=== PATIENT | female | born 1960 | race Caucasian/White ===

== ENCOUNTER 2016-05-03 20:22 | Emergency (ER) | payer OTHER ==
[~2016-05-03] VITALS: Ht 165.1 cm; Wt 63.0 kg
[~2016-05-03 20:22] MED LIST: AUGM875T PO; LIPI10TA PO; LISI2.5T3 PO; METO25 PO
[2016-05-03 20:29] VITALS: BP 168/92; PULSE 86; RESP 16; TEMP 97.9; O2SAT 100
[2016-05-03 20:45] VITALS: BP 172/94; PULSE 89; RESP 16; TEMP 98; O2SAT 100
[2016-05-03] MEDS ORDERED: SIMV40TA PO (20:51)
[2016-05-03] MEDS ORDERED: METO25TA3 PO (20:51)
[2016-05-03] MEDS ORDERED: TRAM50TA PO (20:51)
[2016-05-03] MEDS ORDERED: ALPR.25 PO (20:51)
[2016-05-03] MEDS ORDERED: HUMI20KI SQ (20:51)
[2016-05-03] MEDS ORDERED: HYDR25TA5 PO (20:51)
--- NOTE | 2016-05-03 20:56 | PD ---
HPI Chief Complaint: Headache Time Seen by Provider: 20:56 Travel History International Travel<30 days: No Contact w/Intl Traveler<30days: No Traveled to known affect area: No History of Present Illness HPI 56-year-old female presents to the emergency department for evaluation of headaches have been ongoing for 8 months. She states she had MRI done of her brain on by her primary care physician. She states she received a phone call that she "have an infection in my brain". She was told to follow-up next week and her primary care physician. However, she has been worried and concerned that she may have an infection in her brain and came to the emergency department. Patient denies any fevers. No weakness. No syncope. She does report a history of rheumatoid arthritis, psoriasis, hypertension, hyperlipidemia. She is currently on Humira. Patient does report infections to her right ear and sees Dr. Louis who recently placed tubes. She denies any other complaints. PFSH Past Medical History High Cholesterol: Yes Diminished Hearing: No Hypertension: Yes Immunizations Current: Yes Tetanus Vaccination: Unknown Influenza Vaccination: No Past Surgical History Abdominal Surgery: Yes (TUMMY TUCK) Section: Yes Hysterectomy: Yes Social History Alcohol Use: Yes (VODKA 2-3 DRINKS DAILY) Tobacco Use: No Substance Use: No Allergies-Medications (Allergen,Severity, Reaction): Coded Allergies: Bactrim (Verified Allergy, Unknown, 05/03/16) Reported Meds & Prescriptions Reported Meds & Active Scripts Active Reported Tramadol (Tramadol HCl) 50 Mg Tab 50 Mg PO Q4H PRN Xanax (Alprazolam) 0.25 Mg Tab 0.25 Mg PO Q4H PRN Simvastatin 40 Mg Tab 40 Mg PO HS Hydrochlorothiazide 25 Mg Tab 25 Mg PO BID Metoprolol Tartrate 25 Mg Tab 25 Mg PO BID Humira 2-Pack Inj (Adalimumab 2-Pack Inj) 20 Mg/0.4 Ml Syr 20 Mg SQ Q14D Review of Systems Except as stated in HPI: all other systems reviewed are Neg Physical Exam Narrative GENERAL: Well-developed well-nourished female patient, ambulatory. Afebrile. SKIN: Warm and dry. HEAD: Normocephalic. Atraumatic. ENT: Mucosa pink and moist. No erythema or exudates. No uvular edema. No uvular , palatal, or tonsillar deviation. Airway patent. Nasal turbinates appear normal without nasal blood, purulent drainage or septal hematoma. Bilateral tympanic membranes are clear without erythema or perforation. No mastoid tenderness to palpation. EYES: No scleral icterus. No injection or drainage. NECK: Supple, trachea midline. No JVD or lymphadenopathy. CARDIOVASCULAR: Regular rate and rhythm without murmurs, gallops, or rubs. RESPIRATORY: Breath sounds equal bilaterally. No accessory muscle use. Lungs sounds are clear to auscultation. GASTROINTESTINAL: Abdomen soft, non-tender, nondistended. MUSCULOSKELETAL: No cyanosis, or edema. BACK: Nontender without obvious deformity. No CVA tenderness. NEUROLOGICAL: Awake and alert. Cranial nerves II through XII intact. Motor and sensory grossly within normal limits. Five out of 5 muscle strength in all muscle groups. Normal speech. Finger to nose is normal bilaterally. Heel-to- mosley is normal bilaterally. Data Data Last Documented VS Vital Signs Date Time Temp Pulse Resp B/P Pulse Ox O2 Delivery O2 Flow Rate FiO2 05/03/16 20:45 98.0 89 16 172/94 100 Orders Iv Access Insert/Monitor (05/03/16 21:11) Sodium Chloride 0.9% Flush (Ns Flush) (05/03/16 21:15) Ketorolac Inj (Toradol Inj) (05/03/16 21:15) Prochlorperazine Inj (Compazine Inj) (05/03/16 21:15) Diphenhydramine Inj (Benadryl Inj) (05/03/16 21:15) Sodium Chlor 0.9% 1000 Ml Inj (Ns 1000 M (05/03/16 21:11) Amoxicil-Clavulanate (Augmentin) (05/03/16 21:15) [facility] Medical Decision Making Medical Screen Exam Complete: Yes Emergency Medical Condition: Yes Medical Record Reviewed: Yes Differential Diagnosis Otitis media versus mastoiditis versus intracranial abnormality Narrative Course 56-year-old female presents to the emergency department concerned that her primary care physician told her that she had infection in her brain and was to follow-up next week. I was able to pull up the MRI report that was done on at [facility]. It showed mild right mastoiditis, no acute intracranial abnormality. On exam, she has no tenderness to the mastoid. I discussed the case with our ENT physician bonding supervisor, Dr. Smith. He recommended Augmentin and prednisone and follow up on Thursday with Dr. Louis. The patient states she cannot take corticosteroids and declines a prescription for this stating it raises her blood pressure. She states last time she took prednisone she had to be admitted to the hospital for high blood pressure. Patient is instructed to follow-up with her primary care physician and Dr. Louis on Thursday. She verbalizes agreement and understanding. Patient is given Toradol 30 g IV, Benadryl 25 mg IV Compazine 10 mg IV for headache. She is given her first dose of Augmentin in the emergency department. The patient was discharged in stable condition with instructions, including return instructions and follow up instructions. Diagnosis Primary Impression: Mastoiditis Qualified Code: H70.91 - Mastoiditis, right Additional Impression: Headache Qualified Code: R51 - Chronic nonintractable headache, unspecified headache type Referrals: Juan Pablo Louis MD 2 days Primary Care Physician call for appointment Patient Instructions: Acute Headache (ED), General Instructions, Mastoiditis ( DC) Additional Instructions: Take antibiotic as directed until gone. Take with food. Follow-up with Dr. Louis on Thursday. Follow-up with your primary care physician. Return to the emergency department for any acute worsening of symptoms. Med/Other Pt SpecificInfo: Prescription(s) given Scripts Amoxicillin-Clavulanate (Augmentin)875-125 mg [id number] Mg PO BID 14 Days Ref 0 not for use in CrCl <30 ml/min. Prov:Bhakti Esquivel 05/03/16 Disposition: 01 DISCHARGE HOME Condition: Stable Bhakti Esquivel May 03, 2016 20:56
[2016-05-03] MEDS ORDERED: SODIUM CHLOR 0.9% 1000 ML INJ 1,000 ML IV ONE (21:11)
[2016-05-03] MEDS ORDERED: KETOROLAC TROMETHAMINE 30 MG/ML (IVP) VIAL IVP ONE (21:15)
[2016-05-03] MEDS ORDERED: diphenhydrAMINE HCL 50 MG/ML VIAL IVP ONE (21:15)
[2016-05-03] MEDS ORDERED: SODIUM CHLORIDE 0.9% FLUSH 5 ML FLUSH IVF PRN (21:15)
[2016-05-03] MEDS ORDERED: PROCHLORPERAZINE INJ 10 MG/2 ML VIAL IVP ONE (21:15)
[2016-05-03] MEDS ORDERED: AMOXICILLIN/CLAVULANATE K 875 MG TAB PO ONE (21:15)
[2016-05-03] MEDS ORDERED: AUGM875T PO (21:18)
[2016-05-03 22:16] VITALS: RESP 20
== END 2016-05-03 22:25 | disposition home or self-care (01) ==
LOC: NEPC 20:22
DX: H70.91 Unspecified mastoiditis, right ear (principal); R51 Headache
CPT/HCPCS: 96361; 96374; 96375; 99283; J0780; J1200; J1885; J7030

== ENCOUNTER 2016-09-15 22:18 | Emergency (ER) | payer OTHER ==
[~2016-09-15] VITALS: Ht 167.6 cm; Wt 67.0 kg
[~2016-09-15 22:18] MED LIST changes: +ALPR.25 PO; +HUMI20KI SQ; +HYDR25TA5 PO; -LIPI10TA PO; -LISI2.5T3 PO; -METO25 PO; +METO25TA3 PO; +SIMV40TA PO; +TRAM50TA PO
[2016-09-15 22:20] VITALS: BP_SYST 192; BP_DIAS 103; BP_DIAS 13; PULSE 106; RESP 18; TEMP 98.4; O2SAT 100
--- NOTE | 2016-09-15 23:19 | PD ---
HPI Chief Complaint: Hypertension Time Seen by Provider: 23:16 Travel History International Travel<30 days: No Contact w/Intl Traveler<30days: No Traveled to known affect area: No History of Present Illness HPI 56-year-old female with history of hypertension, states that she may have forgotten to take one of her blood pressure medication doses, noted that her blood pressure was high with a systolic 190 at home and she took lung diet about an hour prior to arrival. She states that she also takes metoprolol and was concerned because she thought that they were not supposed to be taken together. She states that the clonidine and was an old prescription. She also states that she has about a 3-4 out of 10 left-sided chest pains. She had taken 2 baby aspirins today before arrival as well. She denies any shortness of breath, fevers, or other symptoms. Modifying Factors: None Associated Signs & Symptoms: High blood pressure, chest pain Risk Factors: History of hypertension PFSH Past Medical History High Cholesterol: Yes Diminished Hearing: No Hypertension: Yes Immunizations Current: Yes Tetanus Vaccination: Unknown Influenza Vaccination: No Past Surgical History Abdominal Surgery: Yes (TUMMY TUCK) Section: Yes Hysterectomy: Yes Social History Alcohol Use: Yes (VODKA 2-3 DRINKS DAILY) Tobacco Use: No Substance Use: No Allergies-Medications (Allergen,Severity, Reaction): Coded Allergies: Bactrim (Verified Allergy, Unknown, 09/15/16) Reported Meds & Prescriptions Reported Meds & Active Scripts Active Augmentin (Amoxicillin-Clavulanate) 875-125 mg Tab 875 Mg PO BID 14 Days not for use in CrCl <30 ml/min. Reported Tramadol (Tramadol HCl) 50 Mg Tab 50 Mg PO Q4H PRN Xanax (Alprazolam) 0.25 Mg Tab 0.25 Mg PO Q4H PRN Simvastatin 40 Mg Tab 40 Mg PO HS Hydrochlorothiazide 25 Mg Tab 25 Mg PO BID Metoprolol Tartrate 25 Mg Tab 25 Mg PO BID Humira 2-Pack Inj (Adalimumab 2-Pack Inj) 20 Mg/0.4 Ml Syr 20 Mg SQ Q14D Review of Systems Except as stated in HPI: all other systems reviewed are Neg Physical Exam Narrative GENERAL: Well-developed middle age white female patient currently in mild distress. Awake and oriented 3. SKIN: Focused skin assessment warm/dry. HEAD: Atraumatic. Normocephalic. EYES: Pupils equal and round. No scleral icterus. No injection or drainage. ENT: No nasal bleeding or discharge. Mucous membranes pink and moist. NECK: Trachea midline. No JVD. CARDIOVASCULAR: Regular rate and rhythm. No murmur appreciated. RESPIRATORY: No accessory muscle use. Clear to auscultation. Breath sounds equal bilaterally. GASTROINTESTINAL: Abdomen soft, non-tender, nondistended. Hepatic and splenic margins not palpable. MUSCULOSKELETAL: No obvious deformities. No clubbing. No cyanosis. No edema. NEUROLOGICAL: Awake and alert. No obvious cranial nerve deficits. Motor grossly within normal limits. Normal speech. PSYCHIATRIC: Appropriate mood and affect; insight and judgment normal. Data Data Last Documented VS Vital Signs Date Time Temp Pulse Resp B/P Pulse Ox O2 Delivery O2 Flow Rate FiO2 09/15/16 23:20 99 Nasal Cannula 2 09/15/16 23:20 18 09/15/16 23:20 87 167/95 09/15/16 22:20 98.4 Orders Electrocardiogram (09/15/16 23:16) Ckmb (Isoenzyme) Profile (09/15/16 23:16) Complete Blood Count With Diff (09/15/16 23:16) Comprehensive Metabolic Panel (09/15/16 23:16) Magnesium (Mg) (09/15/16 23:16) Prothrombin Time / Inr (Pt) (09/15/16 23:16) Act Partial Throm Time (Ptt) (09/15/16 23:16) Troponin I (09/15/16 23:16) Chest, Single Ap (09/15/16 23:16) Ecg Monitoring (09/15/16 23:16) Bilateral Bp Monitoring (09/15/16 23:16) Iv Access Insert/Monitor (09/15/16 23:16) Oximetry (09/15/16 23:16) Oxygen Administration (09/15/16 23:16) Sodium Chloride 0.9% Flush (Ns Flush) (09/15/16 23:30) Labs Laboratory Tests Test 09/15/16 23:20 White Blood Count 5.4 TH/MM3 Red Blood Count 3.81 MIL/MM3 Hemoglobin 11.8 GM/DL Hematocrit 34.6 % Mean Corpuscular Volume 91.0 FL Mean Corpuscular Hemoglobin 30.9 PG Mean Corpuscular Hemoglobin 34.0 % Concent Red Cell Distribution Width 13.4 % Platelet Count 215 TH/MM3 Mean Platelet Volume 7.4 FL Neutrophils (%) (Auto) 63.0 % Lymphocytes (%) (Auto) 27.7 % Monocytes (%) (Auto) 7.4 % Eosinophils (%) (Auto) 1.3 % Basophils (%) (Auto) 0.6 % Neutrophils # (Auto) 3.4 TH/MM3 Lymphocytes # (Auto) 1.5 TH/MM3 Monocytes # (Auto) 0.4 TH/MM3 Eosinophils # (Auto) 0.1 TH/MM3 Basophils # (Auto) 0.0 TH/MM3 CBC Comment DIFF FINAL Differential Comment Prothrombin Time 10.1 SEC Prothromb Time International 0.9 RATIO Ratio Activated Partial 25.0 SEC Thromboplast Time Sodium Level 141 MEQ/L Potassium Level 3.6 MEQ/L Chloride Level 104 MEQ/L Carbon Dioxide Level 28.4 MEQ/L Anion Gap 9 MEQ/L Blood Urea Nitrogen 16 MG/DL Creatinine 0.74 MG/DL Estimat Glomerular Filtration 81 ML/MIN Rate Random Glucose 91 MG/DL Calcium Level 8.7 MG/DL Magnesium Level 1.9 MG/DL Total Bilirubin 0.9 MG/DL Aspartate Amino Transf 18 U/L (AST/SGOT) Alanine Aminotransferase 18 U/L (ALT/SGPT) Alkaline Phosphatase 75 U/L Total Creatine Kinase 88 U/L Troponin I LESS THAN 0.02 NG/ML Total Protein 7.7 GM/DL Albumin 3.6 GM/DL MDM Medical Decision Making Medical Screen Exam Complete: Yes Emergency Medical Condition: Yes Medical Record Reviewed: Yes Interpretation(s) EKG shows NSR, no ST elevation or depression, and no arrhythmias. No significant T-wave inversions. Laboratory Tests Test 09/15/16 23:20 Red Blood Count 3.81 MIL/MM3 (4.00-5.30) Hematocrit 34.6 % (35.0-46.0) Estimat Glomerular Filtration 81 ML/MIN (>89) Rate Troponin I LESS THAN 0.02 NG/ML (0.02-0.05) Differential Diagnosis High blood pressure, had chest painshypertensive urgency versus ACS versus anxiety Narrative Course EKG did not show any signs of acute dysrhythmias or ST changes. Chest x-ray did not show any signs of acute pneumonia. Metabolic panel is otherwise unremarkable. Patient's blood pressure is improved in the ER. On reevaluation at 12 AM, she no longer has chest pain. I have offered to admit the patient to the hospital for further evaluation a chest pain. She states to me that she did have a stress test done a year ago which was negative. Her risk of having underlying cardiac issues not identified to see year ago should be lower. However, I have offered to admit the patient. Patient states that she is comfortable with following with primary care physician. At this point, my plan would be to release the patient would follow-up to primary care physician. Return for any worsening in symptoms as necessary. Take blood pressure medications consistently. The plan was discussed with her and she states her standing. Diagnosis Primary Impression: Chronic hypertension Additional Impression: Chest pain Disposition: 01 DISCHARGE HOME Condition: Stable Blanca Hudson MD Sep 15, 2016 23:19
[2016-09-15 23:20] VITALS: BP 167/95; PULSE 87; RESP 18; O2SAT 100; O2SAT 99
[2016-09-15] MEDS ORDERED: SODIUM CHLORIDE 0.9% FLUSH 10 ML FLUSH IVF PRN (23:30)
[2016-09-15 23:33] LABS: AUTOMATED NEUTROPHIL # 3.4 TH/MM3 (1.8-7.7); BASOPHIL % 0.6 % (0.0-2.0); EOSINOPHIL # 0.1 TH/MM3 (0-0.4); EOSINOPHIL % 1.3 % (0.0-4.0); HEMATOCRIT 34.6 % (35.0-46.0); HEMO FLAGS DIFF FINAL; LYMPH % 27.7 % (9.0-44.0); LYMPHOCYTE # 1.5 TH/MM3 (1.0-4.8); MEAN CORPUSCULAR HEMOGLOBIN 30.9 PG (27.0-34.0); MONO % 7.4 % (0.0-8.0); PLATELET COUNT 215 TH/MM3 (150-450); RED BLOOD COUNT 3.81 MIL/MM3 (4.00-5.30); RED CELL DISTRIBUTION WIDTH 13.4 % (11.6-17.2); WHITE BLOOD COUNT 5.4 TH/MM3 (4.0-11.0)
[2016-09-15 23:44] LABS: INTERNATIONAL NORMALIZED RATIO 0.9 RATIO; PROTHROMBIN TIME - PATIENT 10.1 SEC (9.8-11.6)
--- NOTE | 2016-09-15 23:48 | RADRPT ---
EXAM DATE/TIME: 09/15/2016 23:28 [facility] COMPARISON: CHEST SINGLE AP, May 06, 2014, 13:45. INDICATIONS : Chest pain. MEDICAL HISTORY : None. SURGICAL HISTORY : None. ENCOUNTER: Initial ACUITY: 1 day PAIN SCORE: 5/10 LOCATION: Bilateral chest FINDINGS: A single view of the chest demonstrates the lungs to be symmetrically aerated without evidence of mas s, infiltrate or effusion. The cardiomediastinal contours are unremarkable. Osseous structures are intact. CONCLUSION: No evidence of acute cardiopulmonary disease. Lawrence Montaño MD on September 15, 2016 at 23:46 Board Certified Radiologist. This report was verified electronically.
[2016-09-15 23:53] LABS: ALT (GPT) 18 U/L (10-53); ANION GAP 9 MEQ/L (5-15); AST (GOT) 18 U/L (15-37); BICARBONATE 28.4 MEQ/L (21.0-32.0); BLOOD UREA NITROGEN 16 MG/DL (7-18); CHLORIDE 104 MEQ/L (98-107); GLOMERULAR FILTRATION RATE 81 ML/MIN (>89); MAGNESIUM 1.9 MG/DL (1.5-2.5); POTASSIUM 3.6 MEQ/L (3.5-5.1); SODIUM (NA) 141 MEQ/L (136-145)
[2016-09-15 23:56] LABS: ALKALINE PHOSPHATASE 75 U/L (45-117); TOTAL BILIRUBIN ADULT 0.9 MG/DL (0.2-1.0)
[2016-09-15 23:58] LABS: CREATINE KINASE 88 U/L (26-192)
[2016-09-16] MEDS ORDERED: METOPROLOL TARTRATE 25 MG TAB PO ONE (00:45)
--- NOTE | 2016-09-16 16:49 | EKG ---
Date Performed: 09/15/2016 Time Performed: 23:26:54 PTAGE: 56 years EKG: Sinus rhythm SEPTAL MYOCARDIAL INFARCTION Since previous tracing, no significant change noted ABNORMAL ECG PREVIOUS TRACING : 05/06/2014 19.37.56 DOCTOR: Rosa Block Interpretating Date/Time 09/16/2016 17:26:34
== END 2016-09-16 00:45 | disposition home or self-care (01) ==
LOC: NEPE 22:18
DX: R07.9 Chest pain, unspecified (principal); I10 Essential (primary) hypertension; R94.31 Abnormal electrocardiogram [ECG] [EKG]; E78.00 Pure hypercholesterolemia, unspecified
CPT/HCPCS: 71010; 80053; 82550; 83735; 84484; 85025; 85610; 85730; 93005; 99285